=== PATIENT | female | born 1960 | race Hispanic/Latino ===

== ENCOUNTER 2019-05-22 18:54 | Emergency (ER) | payer BC ==
[~2019-05-22] VITALS: Ht 157.5 cm; Wt 68.9 kg
[2019-05-22] MEDS ORDERED: KETOROLAC TROMETHAMINE 60 MG/2 ML VIAL IM ONE (21:45)
[2019-05-22] MEDS ORDERED: ORPHENADRINE CITRATE 30 MG/ML VIAL IM ONE (21:45)
[2019-05-22 22:01] LABS: BASOPHILS % 0.3 % (0.0-1.0); EOSINOPHILS # (AUTO) 0.1 (0.0-0.4); EOSINOPHILS % 1.6 % (0.0-6.0); HEMATOCRIT 42.2 % (34.2-44.1); HEMOGLOBIN 13.8 g/dL (12.0-16.0); LYMPHOCYTES # (AUTO) 2.8 (1.0-3.2); LYMPHOCYTES % 32.2 % (18.0-39.1); MEAN CORPUSCULAR HEMOGLOBIN 28.6 pg (28-32); MEAN CORPUSCULAR HGB CONC 32.7 g/dL (31-35); MEAN CORPUSCULAR VOLUME 87.4 fL (81-99); MONOCYTES # (AUTO) 0.8 (0.2-0.8); MONOCYTES % 8.5 % (4.4-11.3); NEUTROPHILS % 56.9 % (38.7-80.0); PLATELET COUNT 242 x10e3/uL (140-360); RED BLOOD COUNT 4.83 x10e6/uL (3.6-5.1)
[2019-05-22 22:15] LABS: ANION GAP 13.8 mmol/L (8-16); BLOOD UREA NITROGEN 13 mg/dL (7-26); BUN/CREATININE RATIO 19 (6-25); CALCIUM 9.1 mg/dL (8.4-10.2); CARBON DIOXIDE 24 mmol/L (22-29); CHLORIDE 105 mmol/L (98-107); CREATINE KINASE 32 IU/L (29-168); EST GLOMERULAR FILTRATION RATE > 60 ML/MIN (60-); GLUCOSE 98 mg/dL (74-118); POTASSIUM 3.8 mmol/L (3.5-5.1); SODIUM 139 mmol/L (136-145)
[2019-05-22 22:21] LABS: CREATINE KINASE MB < 1.00 ng/mL (0-4.3)
== END 2019-05-22 23:15 | disposition home or self-care (01) ==
LOC: ER 18:54
DX: M54.12 Radiculopathy, cervical region (principal); S46.812A Strain of other muscles, fascia and tendons at shoulder and upper arm level, left arm, initial encounter; S46.012A Strain of muscle(s) and tendon(s) of the rotator cuff of left shoulder, initial encounter; E78.5 Hyperlipidemia, unspecified
CPT/HCPCS: 36415; 80048; 82550; 82553; 84484; 85025; 93005; 99283; J1885; J2360

== ENCOUNTER 2021-05-11 06:51 | Emergency (ER) | payer BC ==
[~2021-05-11] VITALS: Ht 157.5 cm; Wt 74.8 kg
[2021-05-11] MEDS ORDERED: ONDANSETRON HCL 4 MG ORAL DISINTEGRATING TAB PO ONE (07:15)
[2021-05-11] MEDS ORDERED: ONDANSETRON ODT4 MG PO (07:16)
[2021-05-11] MEDS ORDERED: IBUPROFEN IB200 MG PO (07:16)
[2021-05-11] MEDS ORDERED: AZITHROMYCIN250 MG PO (07:16)
[2021-05-11] MEDS ORDERED: THERAFLU FLU &1 EAC1 PO (07:16)
[2021-05-11] MEDS ORDERED: ONDANSETRON HCL 4 MG ORAL DISINTEGRATING TAB ONE (07:23)
[2021-05-11] MEDS ORDERED: ACETAMINOPHEN 325 MG TAB ONE (07:23)
[2021-05-11] MEDS ORDERED: ACETAMINOPHEN 325 MG TAB PO ONE (07:30)
== END 2021-05-11 07:30 | disposition home or self-care (01) ==
LOC: FSED 07:07
DX: R50.9 Fever, unspecified (principal); J40 Bronchitis, not specified as acute or chronic; J06.9 Acute upper respiratory infection, unspecified; R05.9 Cough, unspecified; E78.5 Hyperlipidemia, unspecified
CPT/HCPCS: 71046; 83518; 87400; 99283; Q0162